=== PATIENT | female | born 1970 | race Caucasian/White ===

== ENCOUNTER → 2017-04-13 | Outpatient (REF) ==
[2014-04-19 18:20] VITALS: BP 127/86
[~2017-04-13] MED LIST: ASPIRIN 32325 MG/TAB PO; DANTHRON75 MG PO; DEXILANT60 MG PO; NARATRIPTAN2.5 MG PO; RECLIPSEN 0.151 TAB PO; VERAPAMIL240 MG PO
== END ==
LOC: LAB 08:24
DX: Z00.00 Encounter for general adult medical examination without abnormal findings (principal)

== ENCOUNTER → 2017-04-16 | Outpatient (CLI) | payer BC ==
[2014-04-19 18:20] VITALS: BP 127/86
== END ==
LOC: LAB 09:50
DX: N39.0 Urinary tract infection, site not specified (principal)

== ENCOUNTER → 2017-07-09 | Outpatient (CLI) | payer BC ==
[~2017-07-09] VITALS: Ht 157.5 cm; Wt 80.5 kg
[~2017-07-09] MED LIST changes: +ALPRAZOLAM ER0.5 MG PO; +AMITRIPTYLINE H10 M2 PO; +METAXALL800 MG PO
[2017-07-09 12:12] VITALS: BP 119/82
== END ==
LOC: AMSURD 09:57 → RAD 09:57
DX: Z01.818 Encounter for other preprocedural examination (principal); N92.0 Excessive and frequent menstruation with regular cycle

== ENCOUNTER → 2017-10-15 | Outpatient (CLI) | payer OTHER ==
[2017-07-09 12:12] VITALS: BP 119/82
[2017-10-15 12:29] LABS: URINE WBC 31-50 /hpf (0-3)
== END ==
LOC: LAB 11:46
PROVIDERS: Nurse Practitioner Family
DX: N30.00 Acute cystitis without hematuria (principal)

== ENCOUNTER → 2018-04-11 | Outpatient (CLI) | payer OTHER ==
[2017-07-09 12:12] VITALS: BP 119/82
[2018-04-11 14:43] LABS: EOS # 0.1 (0.04-0.40); EOS % 1.8 % (1.0-5.0); HEMATOCRIT 42.6 % (37.0-47.0); HEMOGLOBIN 13.8 g/dL (12.5-16.0); LYMPH# 2.3 (1.50-4.00); MEAN CELL VOLUME 89 fl (78-100); MEAN CORPUSCULAR HEMOGLOBIN 29 pg (27-31); MEAN CORPUSCULAR HGB CONC 32 g/dL (33-37); MONO # 0.3 (0.20-0.80); NEU # 4.3 (1.40-6.50); PLATELET COUNT 301 K/mm3 (130-400); RED BLOOD COUNT 4.81 M/mm3 (4.10-5.30); RED CELL DISTRIBUTION WIDTH 12.8 % (11.5-14.5); WHITE BLOOD COUNT 7.1 K/mm3 (4.8-10.8)
[2018-04-11 15:12] LABS: ALBUMIN 4.1 g/dL (3.5-5.0); BUN/CREATININE RATIO 9.3 (6.0-26.0); CALCIUM 8.9 mg/dL (8.4-10.2); POTASSIUM 3.8 mmol/L (3.6-5.0); TOTAL BILIRUBIN 0.4 mg/dL (0.2-1.3); TOTAL PROTEIN 7.6 g/dL (6.3-8.2)
== END ==
LOC: LAB 14:26
PROVIDERS: Internal Medicine
DX: Z00.00 Encounter for general adult medical examination without abnormal findings (principal)

== ENCOUNTER → 2019-05-05 | Outpatient (CLI) | payer OTHER ==
[2017-07-09 12:12] VITALS: BP 119/82
== END ==
LOC: LAB 08:25
DX: Z00.00 Encounter for general adult medical examination without abnormal findings (principal); K21.9 Gastro-esophageal reflux disease without esophagitis; G43.909 Migraine, unspecified, not intractable, without status migrainosus; G47.00 Insomnia, unspecified; M54.5 Low back pain; R63.5 Abnormal weight gain

== ENCOUNTER 2019-06-23 14:00 | Outpatient (RCR) | payer OTHER ==
[2017-07-09 12:12] VITALS: BP 119/82
== END 2019-06-23 14:30 | disposition home or self-care (01) ==
LOC: PT 14:00
DX: M54.5 Low back pain (principal)

== ENCOUNTER → 2020-03-08 | Outpatient (CLI) | payer OTHER ==
[2017-07-09 12:12] VITALS: BP 119/82
== END ==
LOC: LAB 08:15 → EDSTATUS 08:33
DX: Z20.828 Contact with and (suspected) exposure to other viral communicable diseases (principal)

== ENCOUNTER → 2020-09-04 | Outpatient (CLI) | payer OTHER ==
[2017-07-09 12:12] VITALS: BP 119/82
[2020-09-04 17:01] LABS: BASO # 0.1 (0.02-0.10); EOS # 0.2 (0.04-0.40); EOS % 1.6 % (1.0-5.0); HEMATOCRIT 42.3 % (37.0-47.0); HEMOGLOBIN 13.8 g/dL (12.5-16.0); LYMPH# 2.6 (1.50-4.00); MEAN CELL VOLUME 93 fl (78-100); MEAN CORPUSCULAR HEMOGLOBIN 31 pg (27-31); MEAN CORPUSCULAR HGB CONC 33 g/dL (33-37); MEAN PLATELET VOLUME 10.3 fl (7.4-10.4); MONO # 0.5 (0.20-0.80); NEU # 6.6 (1.40-6.50); PLATELET COUNT 277 K/mm3 (130-400); RED BLOOD COUNT 4.53 M/mm3 (4.10-5.30); WHITE BLOOD COUNT 9.9 K/mm3 (4.8-10.8)
[2020-09-04 17:23] LABS: ALBUMIN 4.1 g/dL (3.5-5.0)
[2020-09-04 17:24] LABS: CALCIUM 8.9 mg/dL (8.3-10.5)
[2020-09-04 17:25] LABS: TOTAL PROTEIN 7.2 g/dL (6.4-8.3)
[2020-09-04 17:27] LABS: TOTAL BILIRUBIN 0.5 mg/dL (0.2-1.2)
== END ==
LOC: LAB 14:42
PROVIDERS: Physician Assistant
DX: Z00.00 Encounter for general adult medical examination without abnormal findings (principal); M47.816 Spondylosis without myelopathy or radiculopathy, lumbar region

== ENCOUNTER → 2020-09-17 | Outpatient (CLI) | payer OTHER ==
[2017-07-09 12:12] VITALS: BP 119/82
== END ==
LOC: RAD 08:06
DX: M51.36 Other intervertebral disc degeneration, lumbar region (principal); M89.38 Hypertrophy of bone, other site; F43.9 Reaction to severe stress, unspecified

== ENCOUNTER → 2021-01-28 | Outpatient (CLI) | payer OTHER ==
[2017-07-09 12:12] VITALS: BP 119/82
== END ==
LOC: LAB 14:06
DX: N30.01 Acute cystitis with hematuria (principal)

== ENCOUNTER → 2021-07-15 | Outpatient (CLI) | payer OTHER | LOC: LAB 12:39 | DX: Z20.822 Contact with and (suspected) exposure to COVID-19 (principal) ==

== ENCOUNTER → 2022-05-14 | Outpatient (CLI) | payer OTHER | LOC: RAD 12:13 | DX: M77.32 Calcaneal spur, left foot (principal) ==

== ENCOUNTER → 2023-06-10 | Outpatient (CLI) | payer OTHER | LOC: LAB 16:14 | DX: N39.0 Urinary tract infection, site not specified (principal) ==

== ENCOUNTER → 2024-08-22 | Outpatient (CLI) | payer OTHER ==
[2024-08-22 12:33] LABS: BASO # 0.04 K/mm3 (0.02-0.10); EOS # 0.07 K/mm3 (0.04-0.40); EOS % 0.8 % (1.0-5.0); HEMATOCRIT 43.3 % (37.0-47.0); HEMOGLOBIN 13.8 g/dL (12.5-16.0); LYMPH# 2.06 K/mm3 (1.50-4.00); MEAN CELL VOLUME 94 fl (78-100); MEAN CORPUSCULAR HEMOGLOBIN 30 pg (27-31); MEAN CORPUSCULAR HGB CONC 32 g/dL (33-37); MONO # 0.38 K/mm3 (0.20-0.80); NEU # 6.36 K/mm3 (1.40-6.50); PLATELET COUNT 266 K/mm3 (130-400); RED BLOOD COUNT 4.61 M/mm3 (4.10-5.30); RED CELL DISTRIBUTION WIDTH 12.8 % (11.5-14.5); WHITE BLOOD COUNT 8.9 K/mm3 (4.8-10.8)
[2024-08-22 12:38] LABS: ALBUMIN 4.1 g/dL (3.5-5.0)
[2024-08-22 12:40] LABS: CALCIUM 9.5 mg/dL (8.3-10.5)
[2024-08-22 12:41] LABS: TOTAL PROTEIN 6.9 g/dL (6.4-8.3)
[2024-08-22 12:43] LABS: TOTAL BILIRUBIN 0.6 mg/dL (0.2-1.2)
[2024-08-22 12:49] LABS: PH-URINE 5.5 (5.0 - 8.0); URINE APPEARANCE CLEAR (CLEAR); URINE BILIRUBIN NEGATIVE (NEGATIVE); URINE BLOOD 2+ (NEGATIVE); URINE COLOR LIGHT YELLOW (YELLOW); URINE GLUCOSE NEGATIVE (NEGATIVE); URINE KETONE NEGATIVE (NEGATIVE); URINE LEUKOCYTE ESTERASE NEGATIVE (NEGATIVE); URINE NITRATE NEGATIVE (NEGATIVE); URINE PROTEIN(semi-quant) NEGATIVE (NEGATIVE)
== END ==
LOC: LAB 12:08
PROVIDERS: Physician Assistant
DX: R10.9 Unspecified abdominal pain (principal)

== ENCOUNTER → 2024-08-25 | Outpatient (CLI) | payer OTHER ==
[~2024-08-25] MED LIST changes: +Iohexol 300 - 100 ML VIAL IV ONE
== END ==
LOC: RAD 09:57
DX: N83.8 Other noninflammatory disorders of ovary, fallopian tube and broad ligament (principal); I51.7 Cardiomegaly
CPT/HCPCS: Q9967

== ENCOUNTER → 2024-09-01 | Outpatient (CLI) | payer OTHER ==
[~2024-09-01] MED LIST changes: -Iohexol 300 - 100 ML VIAL IV ONE; +KETOROLAC10 MG PO; +NORCO 325 MG-51 TA1 PO; +NURTEC ODT75 MG PO; +PHENERGAN 25 TA25 MG PO; +PROPRANOLOL HCL40 M2 PO
== END ==
LOC: RAD 09:17
DX: R19.09 Other intra-abdominal and pelvic swelling, mass and lump (principal)

== ENCOUNTER 2024-09-03 01:22 | Emergency (ER) | payer OTHER ==
[~2024-09-03] VITALS: Ht 157.5 cm; Wt 81.8 kg
[~2024-09-03 01:22] MED LIST changes: -KETOROLAC10 MG PO; -NORCO 325 MG-51 TA1 PO; -NURTEC ODT75 MG PO; -PHENERGAN 25 TA25 MG PO; -PROPRANOLOL HCL40 M2 PO
[2024-09-03] MEDS ORDERED: NURTEC ODT75 MG PO (01:42)
[2024-09-03] MEDS ORDERED: Acetaminophen 325 MG TAB PO ONE (02:00)
[2024-09-03 02:26] LABS: URINE APPEARANCE CLEAR (CLEAR); URINE COLOR YELLOW (YELLOW)
[2024-09-03 02:27] LABS: PH-URINE 5.5 (5.0 - 8.0); URINE BILIRUBIN NEGATIVE (NEGATIVE); URINE BLOOD 1+ (NEGATIVE); URINE GLUCOSE NEGATIVE (NEGATIVE); URINE KETONE NEGATIVE (NEGATIVE); URINE LEUKOCYTE ESTERASE NEGATIVE (NEGATIVE); URINE NITRATE NEGATIVE (NEGATIVE); URINE PROTEIN(semi-quant) NEGATIVE (NEGATIVE)
[2024-09-03 02:28] LABS: URINE MUCUS PRESENT (NOT PRESENT)
[2024-09-03] MEDS ORDERED: NORCO 325 MG-51 TA1 PO (02:39)
[2024-09-03] MEDS ORDERED: Home HYDROcodone/Acetaminophen 5/325 MG #4 TABS/PACK PO ONE (02:45)
[2024-09-03 02:52] VITALS: BP 102/79
== END 2024-09-03 02:55 | disposition home or self-care (01) ==
LOC: ED 01:22
PROVIDERS: Family Medicine
DX: R10.30 Lower abdominal pain, unspecified (principal); R31.29 Other microscopic hematuria; Z90.711 Acquired absence of uterus with remaining cervical stump; Z85.43 Personal history of malignant neoplasm of ovary

== ENCOUNTER → 2024-09-05 | Outpatient (CLI) | payer OTHER ==
[~2024-09-05] MED LIST changes: +Gadoterate 20 ML VIAL IV ONE; +KETOROLAC10 MG PO; +NORCO 325 MG-51 TA1 PO; +NURTEC ODT75 MG PO; +PHENERGAN 25 TA25 MG PO; +PROPRANOLOL HCL40 M2 PO
== END ==
LOC: RAD 10:24
DX: R19.00 Intra-abdominal and pelvic swelling, mass and lump, unspecified site (principal)
CPT/HCPCS: A9575

== ENCOUNTER 2024-09-08 13:42 | Emergency (ER) | payer OTHER ==
[~2024-09-08] VITALS: Ht 157.5 cm; Wt 86.1 kg
[~2024-09-08 13:42] MED LIST changes: -Gadoterate 20 ML VIAL IV ONE; -KETOROLAC10 MG PO; -PHENERGAN 25 TA25 MG PO; -PROPRANOLOL HCL40 M2 PO
[2024-09-08] MEDS ORDERED: PROPRANOLOL HCL40 M2 PO (13:55)
[2024-09-08 14:29] LABS: BASO # 0.05 K/mm3 (0.02-0.10); EOS # 0.13 K/mm3 (0.04-0.40); EOS % 1.4 % (1.0-5.0); HEMATOCRIT 41.6 % (37.0-47.0); HEMOGLOBIN 13.7 g/dL (12.5-16.0); LYMPH# 1.74 K/mm3 (1.50-4.00); MEAN CELL VOLUME 94 fl (78-100); MEAN CORPUSCULAR HEMOGLOBIN 31 pg (27-31); MEAN CORPUSCULAR HGB CONC 33 g/dL (33-37); MEAN PLATELET VOLUME 10.1 fl (7.4-10.4); MONO # 0.46 K/mm3 (0.20-0.80); NEU # 6.71 K/mm3 (1.40-6.50); PLATELET COUNT 251 K/mm3 (130-400); RED BLOOD COUNT 4.44 M/mm3 (4.10-5.30); RED CELL DISTRIBUTION WIDTH 12.7 % (11.5-14.5); WHITE BLOOD COUNT 9.1 K/mm3 (4.8-10.8)
[2024-09-08 14:38] LABS: CALCIUM 9.5 mg/dL (8.3-10.5)
[2024-09-08 14:38] LABS: URINE APPEARANCE CLEAR (CLEAR); URINE COLOR LIGHT YELLOW (YELLOW)
[2024-09-08 14:39] LABS: PH-URINE 7.5 (5.0 - 8.0); URINE BILIRUBIN NEGATIVE (NEGATIVE); URINE GLUCOSE NEGATIVE (NEGATIVE); URINE KETONE NEGATIVE (NEGATIVE); URINE NITRATE NEGATIVE (NEGATIVE); URINE PROTEIN(semi-quant) NEGATIVE (NEGATIVE)
[2024-09-08 14:39] LABS: TOTAL PROTEIN 6.8 g/dL (6.4-8.3)
[2024-09-08 14:40] LABS: URINE BLOOD 2+ (NEGATIVE); URINE LEUKOCYTE ESTERASE NEGATIVE (NEGATIVE); URINE WBC 0-1 /hpf (0-3)
[2024-09-08 14:41] LABS: TOTAL BILIRUBIN 0.7 mg/dL (0.2-1.2)
[2024-09-08] MEDS ORDERED: Ketorolac 30 MG/ML VIAL IM ONE (15:00)
[2024-09-08] MEDS ORDERED: HYDROcodone/Acetaminophen 7.5-325 MG TAB PO ONE (15:00)
[2024-09-08] MEDS ORDERED: KETOROLAC10 MG PO (15:19)
[2024-09-08] MEDS ORDERED: PHENERGAN 25 TA25 MG PO (15:20)
[2024-09-08 15:52] VITALS: BP 148/84
== END 2024-09-08 15:53 | disposition home or self-care (01) ==
LOC: ED 13:42
PROVIDERS: Nurse Practitioner
DX: N83.202 Unspecified ovarian cyst, left side (principal)
CPT/HCPCS: J1885